=== PATIENT | male | born 2000 | race Caucasian/White ===

== ENCOUNTER 2020-12-28 19:20 | Emergency (ER) | payer OTHER, SELFPAY ==
[2020-12-28 19:33] VITALS: BP 118/61; PULSE 81; RESP 18; TEMP 37.2; O2SAT 100
--- NOTE | 2020-12-28 19:54 | ED.SKABFB ---
HPI - Skin/Abscess/Foreign Bdy General Chief complaint: Eye Problems Stated complaint: eye problems Source: patient Mode of arrival: ambulatory Limitations: no limitations History of Present Illness HPI narrative: 20-year-old male presents to [facility] with complaints of poison josiah to his left upper eyelid spreading to his forehead since this morning. Patient reports that he started with poison josiah approximately 1 week ago to his arms and legs as he works outside doing lawn care. Patient has been applying [id number] calamine lotion with minimal relief. Patient shortness of breath, wheezing, difficulty swallowing or trouble breathing MD complaint: rash Onset (ago): day(s) (10) Location: face Relieving factors: none Associated symptoms: denies other symptoms Treatments prior to arrival: OTC topical medication Related Data Allergies Allergy/AdvReac Type Severity Reaction Status Date / Time No Known Allergies Allergy Mild Verified 12/28/20 19:50 Review of Systems Constitutional: Constitutional: Denies chills, Denies fatigue, Denies fever(s) and Denies weakness ENT: Denies dizziness Cardiovascular: Cardiovascular: Denies chest pain Respiratory: Respiratory: Denies cough, Denies dyspnea and Denies wheezing Gastrointestinal: Gastrointestinal: Denies abdominal pain, Denies diarrhea, Denies nausea and Denies vomiting Integumentary/Breasts: Skin/Breast: Denies pruritus, Reports rash and Denies skin ulcer Allergic/Immunologic: Allergic/Immunologic: Denies lip swelling, Denies throat swelling and Denies tongue swelling PMFSH Social History Social History (Updated 12/28/20 @ 19:56 by Sapna Prince, HOME AID) Smoking status: Never smoker Comments At time of signature, I agree with nursing past medical, surgical, social and family history. There is no relevant family history pertinent to the presenting complaint. Exam Const: General: no acute distress Nutritional Appearance: well nourished Orientation/consciousness: patient oriented x3 Eyes: Conjunctivae: conjunctivae normal Pupils: Equal, round and reactive pupils present Direct Ophthalmoscopy: no photophobia Other: There is mild erythema, swelling and dermatitis noted to left upper eyelid spreading to left side of forehead. There is no injection noted. Neck: Neck: normal visual inspection Resp: Effort & Inspection: normal respiratory effort Auscultation: clear to auscultation bilaterally Cardio: Rate: regular rate Rhythm: regular rhythm Skin: General skin exam: normal color Wounds: no wounds Other: Dry, healing poison josiah dermatitis noted to right upper thigh, left forearm and right elbow. There is no purulent drainage, bleeding, bruising or signs of infection noted. Raised erythematous rash representing dermatitis noted to left upper eyelid spreading to left side of forehead Neuro: General: patient oriented x3 and moves all extremities Speech: normal speech Psych: Appearance: grossly normal Mental Status: mental status grossly normal Affect: normal affect Attitude: cooperative Thought content: Yes Normal thought content present Course Vital Signs Vital signs: Vital Signs Temperature 37.2 C 12/28/20 19:33 Pulse Rate 81 12/28/20 19:33 Respiratory Rate 18 12/28/20 19:33 Blood Pressure 118/61 12/28/20 19:33 Pulse Oximetry 100 12/28/20 19:33 Temperature 37.2 C 12/28/20 19:33 Pulse Rate 81 12/28/20 19:33 Respiratory Rate 18 12/28/20 19:33 Blood Pressure 118/61 12/28/20 19:33 Pulse Oximetry 100 12/28/20 19:33 MDM - Skin/Abscess/Foreign Bdy MDM Narrative Medical decision making narrative: Patient agrees to take medications as prescribed. Patient agrees to only use triamcinolone ointment to arms legs. Patient understands that he is to avoid using triamcinolone ointment on his face. Patient agrees to follow-up with primary care provider if symptoms not improve Differential Diagnosis Differential diagnosis: L
[2020-12-28] MEDS: methylPREDNISolone SOD SUCC 125 MG VIAL 80 MG IM (20:07)
== END 2020-12-28 20:24 | disposition home or self-care (01) ==
PROVIDERS: Emergency Provider Nurse Practitioner Family
DX: L23.7 Allergic contact dermatitis due to plants, except food (principal)
CPT/HCPCS: 96372; 99213; G0463; J2930

== ENCOUNTER 2021-03-01 12:00 | Emergency (ER) | payer OTHER, SELFPAY ==
[2021-03-01 12:11] VITALS: BP 128/80; PULSE 62; RESP 16; TEMP 37.4; O2SAT 99
--- NOTE | 2021-03-01 12:24 | ED.GENADULT ---
HPI - General Adult General Chief complaint: Skin/Abscess/Foreign Body Stated complaint: poison melanie Source: patient Mode of arrival: ambulatory Limitations: no limitations History of Present Illness HPI narrative: 20 y/o male. PMHx none reported. Presents to [facility] today with acute complaints of rash, poison melanie located to [place] and [place]. He tells me he works on [employer] and has come in contact with poison melanie on the job site a few days ago. Has since had worsening pruritic changes and redness to areas. Home topical calamine remedies have been sub-therapeutic per report. No facial or oral involvement. No dyspnea. No additional areas of integumentary involvement. He is w/o additional acute c/o illness upon exam. Related Data Allergies Allergy/AdvReac Type Severity Reaction Status Date / Time No Known Allergies Allergy Mild Verified 03/01/21 12:10 Review of Systems Review of Systems: CONSTITUTIONAL: Denies fever, chills, sweats. EYES: Denies visual changes, redness, discharge. ENT: Denies rhinorrhea, congestion, sore throat, otalgia. CARDIOVASCULAR: Denies chest pain, palpitations, edema. RESPIRATORY: Denies dyspnea, wheezing, cough GASTROINTESTINAL: Denies abdominal pain, nausea, vomiting, diarrhea. GENITOURINARY: Denies dysuria, hematuria, abnormal discharge SKIN: Positive rash & itching. MUSCULOSKELETAL: Denies acute back pain, joint pain, or myalgia. NEUROLOGIC: Denies numbness, or focal weakness. PSYCHIATRIC: Denies anxiety or depression. All systems reviewed & are unremarkable except as noted in HPI and below PMFSH Social History Social History Smoking status: Never smoker Gender identity (if verbalized by the patient): Male Exam Narrative: GENERAL: This is a well-nourished, well-developed adult, in no apparent distress. HEAD: normocephalic, atraumatic. EYES: PERRL. Sclera clear/white. EARS: External ears normal, auditory canals clear and without drainage, TMs normal. NOSE: External nose normal. THROAT: Mucous membranes moist, posterior pharynx clear. No exudates. NECK: Neck supple, non-tender without lymphadenopathy, masses or thyromegaly. CARDIOVASCULAR: Regular rate and rhythm without murmurs, gallops, or rubs. RESPIRATORY: Clear to auscultation. Breath sounds equal bilaterally. No wheezes, rales, or rhonchi. GASTROINTESTINAL: Abdomen soft, non-tender, nondistended. Bowel sounds are active. No guarding. SKIN: warm, intact. With scattered and erythematous lesions to bilateral forearms and wrists. Areas are crusting with honey colored and serosanguineous discharge. No deep tissue wounds. He does have a small patch mid-abdomen. No additional areas of integumentary involvement. NEURO: No focal neurologic deficits. EXTREMITIES: Negative. Course Course Emergency Course: 20 y/o male. PMH non-contributory, negative. Poison Melanie/Poison [place] exposure at work. Failure to respond to OP remedies. No facial or oral involvement. No airway concerns. No deep tissue disruption. Proceed accordingly. Vital Signs Vital signs: Vital Signs Temperature 37.4 C 03/01/21 12:11 Pulse Rate 62 03/01/21 12:11 Respiratory Rate 16 03/01/21 12:11 Blood Pressure 128/80 03/01/21 12:11 Pulse Oximetry 99 03/01/21 12:11 Temperature 37.4 C 03/01/21 12:11 Pulse Rate 62 03/01/21 12:11 Respiratory Rate 16 03/01/21 12:11 Blood Pressure 128/80 03/01/21 12:11 Pulse Oximetry 99 03/01/21 12:11 Medical Decision Making MDM Narrative Medical decision making narrative: -Start Medrol Dose Pack PO QD as directed for systemic benefit. -Resume home OTC Claritin PO QD, Benadryl PRN, and cool compress. -May mix 1/2 inch ribbon Calamine w/Triamcinolone and apply this ointment to areas TID until healed. -Good handwashing. -PCP F/U 1 WK. -ER w/emergent health status changes. Pt agrees. Differential Diagnosis Di
== END 2021-03-01 12:55 | disposition home or self-care (01) ==
PROVIDERS: Emergency Provider Nurse Practitioner Adult Health
DX: L23.7 Allergic contact dermatitis due to plants, except food (principal)
CPT/HCPCS: 99213; G0463